=== PATIENT | male | born 1945 ===

== ENCOUNTER 2024-11-17 14:32 | Emergency (ER) | payer OTHER ==
[2024-11-17] MEDS: PANTOPRAZOLE 40 MG/10 ML VIAL IVP ONE (14:48)
[2024-11-17] MEDS: LACTATED RINGERS 1,000 ML BAG IV STA (14:49)
[2024-11-17] MEDS: MIDAZOLAM 1 MG/ML 5 ML VIAL IV STA (14:58)
[2024-11-17] MEDS: ROCURONIUM 10 MG/ML (5 ML VIAL) IV STA (14:59)
--- NOTE | 2024-11-17 15:13 | XR ---
EXAMINATION TYPE: XR chest 1V portable DATE OF EXAM: 11/17/2024 3:06 PM COMPARISON: None. CLINICAL INDICATION: Male, 24 years old with history of resp failure; [facility] TECHNIQUE: XR chest 1V portable Frontal view of the chest. FINDINGS: Cardiac silhouette within normal limits for size. There is complete opacification of the right hemithorax. An endotracheal tube visualized terminating approximately 2.9 cm above the jamarcus. Left lung appears clear. No pneumothorax. No acute osseous abnormality. IMPRESSION: 1. Near complete opacification of the right hemithorax suspicious for pneumonia. 2. Endotracheal tube terminating proximal to 9 cm above the jamarcus. [facility], , 11/17/2024 3:10 PM
--- NOTE | 2024-11-17 15:19 | ED ---
General Adult HPI - General Chief complaint: Altered Mental Status Stated complaint: Unresponsive Time Seen by Provider: 11/17/24 14:39 Source: EMS, RN notes reviewed, old records reviewed Mode of arrival: EMS Limitations: altered mental status - History of Present Illness Initial comments: Approximately 81-year-old male, Olivier Mojica presenting with altered mental status. Patient was found by paramedics, completely unresponsive agonal respirations hypoxic, tachycardic, covered in vomit. He was found either by family or landlord after last being seen 2 days prior. No history is available at the time of my evaluation - Related Data Allergies Allergy/AdvReac Type Severity Reaction Status Date / Time Unable to Assess Allergy Verified 11/17/24 14:37 Review of Systems ROS Statement: Those systems with pertinent positive or pertinent negative responses have been documented in the HPI. ROS Other: All systems not noted in ROS Statement are negative. Past Medical History Past Medical History: Unable to Obtain History of Any Multi-Drug Resistant Organisms: Unobtainable Past Surgical History: Unable to Obtain Past Psychological History: Unable to Obtain Past Alcohol Use History: Unable to Obtain Past Drug Use History: Unable to Obtain General Exam Limitations: altered mental status General appearance: obtunded, in distress Head exam: Present: atraumatic, normocephalic Eye exam: Present: PERRL ENT exam: Present: mucous membranes dry Neck exam: Present: normal inspection. Absent: tenderness, meningismus Respiratory exam: Present: respiratory distress, rhonchi Cardiovascular Exam: Present: normal rhythm, tachycardia GI/Abdominal exam: Present: soft. Absent: distended, tenderness Neurological exam: Absent: alert Skin exam: Present: cyanosis, pallor Course Vital Signs 11/17/24 11/17/24 11/17/24 14:35 14:40 14:54 Temperature Pulse Rate 141 H 152 H Respiratory 12 18 Rate Blood Pressure 110/61 108/83 O2 Sat by Pulse Oximetry Fraction of 100 Inspired Oxygen (FIO2) 11/17/24 11/17/24 11/17/24 15:00 15:07 15:08 Temperature 98.4 F Pulse Rate 142 H 142 H Respiratory 20 20 Rate Blood Pressure 100/70 116/78 O2 Sat by Pulse 93 L Oximetry Fraction of 100 Inspired Oxygen (FIO2) 11/17/24 11/17/24 11/17/24 15:34 15:40 15:48 Temperature 99.5 F 99.7 F H Pulse Rate 134 H 134 H Respiratory 20 20 Rate Blood Pressure 77/59 82/63 103/74 O2 Sat by Pulse 93 L Oximetry Fraction of Inspired Oxygen (FIO2) 11/17/24 11/17/24 15:56 16:04 Temperature Pulse Rate 134 H 130 H Respiratory 20 20 Rate Blood Pressure 115/80 O2 Sat by Pulse 94 L Oximetry Fraction of Inspired Oxygen (FIO2) Procedures - Intubation Sedative: Versed Mg Given: 5 Paralytic: Rocuronium Mg Given: 50 Laryngoscope: Ambar Size: 4 ET Tube Size: 8 ET Tube Uncuffed: No Tube Secured Depth (cm): 24 Tube Secured Location: lips Tube Placement Confirmation: visualized tube passing through cords, equal breath sounds bilaterally Patient Tolerated Procedure: well Intubation Complications: none Medical Decision Making - Medical Decision Making Was pt. sent in by a medical professional or institution ([facility], CASE RESOLUTION SPECIALIST, urgent care, hospital, or [facility]...) When possible be specific @ -[No] Did you speak to anyone other than the patient for history (EMS, parent, family, police, friend...)? What history was obtained from this source @ -[No] Did you review nursing and triage notes (agree or disagree)? Why? @ -[I reviewed and agree with nursing and triage notes] Were old charts reviewed (outside hosp., previous admission, EMS record, old EKG, old radiological studies, urgent care reports/EKG's, [facility] records)? Report findings @ -[No old charts were reviewed] Differential Altered Mental Status: Hypoglycemia, DKA, hypercapnia, ETOH, overdose, CO poisoning, trauma, myxedema coma, HTN encephalopathy, infection, encephalitis, psychosis, intercranial hemor rhage, hepatic encephalopathy, meningitis, CVA, this is not meant to be an all- inclusive list EKG interpreted by me (3pts min.). @ -Sinus tachycardia versus atrial flutter with 2 1 conduction, narrow complex QRS rate of 154, MD interval 118, QRS duration 94, QTc 392 X-rays interpreted by me (1pt min.). @Single view chest x-ray showing satisfactory placement of the endotracheal tube, opacification of the right hemithorax CT interpreted by me (1pt min.). @CT showing large intracranial hemorrhage with midline shift, vasogenic edema, intraventricular hemorrhage. U/S interpreted by me (1pt. min.). @ -[None done] What testing was considered but not performed or refused? (CT, X-rays, U/S, labs)? Why? @ -[None] What meds were considered but not given or refused? Why? @ -[None] Did you discuss the management of the patient with other professionals (professionals i.e. , PA, CASE RESOLUTION SPECIALIST, lab, RT, psych nurse, social insurance analyst, skin care therapist, teacher, humane officer, pillowcase maker)? Give summary @ -[No] Was smoking cessation discussed for >3mins.? @ -[No] Was critical care preformed (if so, how long)? @Yes, 35 minutes Were there social determinants of health that impacted care today? How? (Homelessness, low income, unemployed, alcoholism, drug addiction, transportation, low edu. Level, literacy, decrease access to med. care, detention, rehab)? @ -[No] Was there de-escalation of care discussed even if they declined (Discuss DNR or withdrawal of care, Hospice)? DNR status @ -[No] What co-morbidities impacted this encounter? (DM, HTN, Smoking, COPD, CAD, Cancer, CVA, ARF, Chemo, Hep., AIDS, mental health diagnosis, sleep apnea, morbid obesity)? @ -[History not known Was patient admitted / discharged? Hospital course, mention meds given and route, prescriptions, significant lab abnormalities, going to OR and other pertinent info. @ -79-year-old male presenting in extremis, altered, agonal respirations, tachycardic, covered in what appears to be hematemesis. Patient is intubated upon arrival. Workup was initiated which shows significant abnormalities including opacification of the right hemithorax, large intracranial hemorrhage with vasogenic edema, elevated troponin, elevated lactic acid. Initial resuscitation is performed and ultimately the patient's identity is located and I was able to discuss the goals of care with the patient's son Harman who is approximately 8 hours away. It is decided that the patient should be kept comfortable and no aggressive measures should be continued. The patient is extubated in the emergency department and shortly thereafter the patient is . At 1625. I did notify the son of his father's passing. Undiagnosed new problem with uncertain prognosis? @ -[No] Drug Therapy requiring intensive monitoring for toxicity (Heparin, Nitro, Insuli n, Cardizem)? @ -[No] Were any procedures done? @ -Yes, intubation Diagnosis/symptom? @ -[Intracranial hemorrhage, respiratory failure, cardiopulmonary arrest Acute, or Chronic, or Acute on Chronic? @ -[Acute Uncomplicated (without systemic symptoms) or Complicated (systemic symptoms)? @ -Complicated Side effects of treatment? @ -[No] Exacerbation, Progression, or Severe Exacerbation? @ -[No] Poses a threat to life or bodily function? How? (Chest pain, USA, CO, pneumonia, PE, COPD, DKA, ARF, appy, cholecystitis, CVA, Diverticulitis, Homicidal, Suicidal, threat to staff... and all critical care pts) @ -yes, cardiac arrest - Lab Data Result diagrams: 11/17/24 15:01 11/17/24 15:01 Lab Results 11/17/24 11/17/24 11/17/24 Range/Units 15:01 15:01 15:01 WBC 5.6 (3.8-10.6) k/uL RBC 5.55 (4.30-5.90) m/uL Hgb 18.0 H (13.0-17.5) gm/dL Hct 53.2 H (39.0-53.0) % MCV 95.8 (80.0-100.0) fL MCH 32.4 (25.0-35.0) pg MCHC 33.8 (31.0-37.0) g/dL RDW 12.7 (11.5-15.5) % Plt Count 209 (150-450) k/uL MPV 8.7 Neutrophils % 79 % Lymphocytes % 16 % Monocytes % 3 % Eosinophils % 0 % Basophils % 1 % Neutrophils # 4.5 (1.3-7.7) k/uL Lymphocytes # 0.9 L (1.0-4.8) k/uL Monocytes # 0.2 (0-1.0) k/uL Eosinophils # 0.0 (0-0.7) k/uL Basophils # 0.0 (0-0.2) k/uL Manual Slide Review Performed PT 14.7 H (10.0-12.5) sec INR 1.4 H (<1.2) APTT 24.8 (22.0-30.0) sec Sodium (137-145) mmol/L Potassium (3.5-5.1) mmol/L Chloride (98-107) mmol/L Carbon Dioxide (22-30) mmol/L Anion Gap mmol/L BUN (9-20) mg/dL Creatinine (0.66-1.25) mg/dL Est GFR (CKD-EPI)AfAm (>60 ml/min/1.73 sqM) Est GFR (CKD-EPI)NonAf (>60 ml/min/1.73 sqM) Glucose (74-99) mg/dL Plasma Lactic Acid Immanuel (0.7-2.0) mmol/L Calcium (8.4-10.2) mg/dL Magnesium (1.6-2.3) mg/dL Total Bilirubin (0.2-1.3) mg/dL AST (17-59) U/L ALT (4-49) U/L Alkaline Phosphatase (38-126) U/L Troponin I (0.000-0.034) ng/mL Total Protein (6.3-8.2) g/dL Albumin (3.5-5.0) g/dL Urine Color Yellow Urine Appearance Clear (Clear) Urine pH 6.0 (5.0-8.0) Ur Specific [place] 1.026 (1.001-1.035) Urine Protein 1+ H (Negative) Urine Glucose (UA) 2+ H (Negative) Urine Ketones 1+ H (Negative) Urine Blood Trace H (Negative) Urine Nitrite Negative (Negative) Urine Bilirubin Negative (Negative) Urine Urobilinogen <2.0 (<2.0) mg/dL Ur Leukocyte Esterase Negative (Negative) Urine RBC 1 (0-5) /hpf Urine WBC 1 (0-5) /hpf Urine Mucus Rare H (None) /hpf 11/17/24 11/17/24 11/17/24 Range/Units 15:01 15:01 15:01 WBC (3.8-10.6) k/uL RBC (4.30-5.90) m/uL Hgb (13.0-17.5) gm/dL Hct (39.0-53.0) % MCV (80.0-100.0) fL MCH (25.0-35.0) pg MCHC (31.0-37.0) g/dL RDW (11.5-15.5) % Plt Count (150-450) k/uL MPV Neutrophils % % Lymphocytes % % Monocytes % % Eosinophils % % Basophils % % Neutrophils # (1.3-7.7) k/uL Lymphocytes # (1.0-4.8) k/uL Monocytes # (0-1.0) k/uL Eosinophils # (0-0.7) k/uL Basophils # (0-0.2) k/uL Manual Slide Review PT (10.0-12.5) sec INR (<1.2) APTT (22.0-30.0) sec Sodium 138 (137-145) mmol/L Potassium 3.6 (3.5-5.1) mmol/L Chloride 98 (98-107) mmol/L Carbon Dioxide 19 L (22-30) mmol/L Anion Gap 21 mmol/L BUN 82 H (9-20) mg/dL Creatinine 3.61 H (0.66-1.25) mg/dL Est GFR (CKD-EPI)AfAm 26 (>60 ml/min/1.73 sqM) Est GFR (CKD-EPI)NonAf 22 (>60 ml/min/1.73 sqM) Glucose 90 (74-99) mg/dL Plasma Lactic Acid Immanuel 9.2 H* (0.7-2.0) mmol/L Calcium 9.5 (8.4-10.2) mg/dL Magnesium 2.3 (1.6-2.3) mg/dL Total Bilirubin 3.0 H (0.2-1.3) mg/dL AST 93 H (17-59) U/L ALT 42 (4-49) U/L Alkaline Phosphatase 41 (38-126) U/L Troponin I 0.467 H* (0.000-0.034) ng/mL Total Protein 7.0 (6.3-8.2) g/dL Albumin 4.1 (3.5-5.0) g/dL Urine Color Urine Appearance (Clear) Urine pH (5.0-8.0) Ur Specific [place] (1.001-1.035) Urine Protein (Negative) Urine Glucose (UA) (Negative) Urine Ketones (Negative) Urine Blood (Negative) Urine Nitrite (Negative) Urine Bilirubin (Negative) Urine Urobilinogen (<2.0) mg/dL Ur Leukocyte Esterase (Negative) Urine RBC (0-5) /hpf Urine WBC (0-5) /hpf Urine Mucus (None) /hpf Critical Care Time Critical Care Time: Yes Total Critical Care Time: 35 Disposition Clinical Impression: Altered mental status, ICH (intracerebral hemorrhage) Disposition: Condition: Undetermined Is patient prescribed a controlled substance at d/c from ED?: No Referrals: None,Stated [Primary Care Provider] - 1-2 days Time of Disposition: 14:25
[2024-11-17 15:25] LABS: AST 93 U/L (17-59); African American GFR (CKD) 26 (>60 ml/min/1.73 sqM); Albumin 4.1 g/dL (3.5-5.0); Alkaline Phosphatase 41 U/L (38-126); Anion Gap 21 mmol/L; Blood Urea Nitrogen 82 mg/dL (9-20); Calcium 9.5 mg/dL (8.4-10.2); Carbon Dioxide 19 mmol/L (22-30); Chloride 98 mmol/L (98-107); Glucose 90 mg/dL (74-99); Magnesium 2.3 mg/dL (1.6-2.3); Non-African American GFR(CKD) 22 (>60 ml/min/1.73 sqM); Potassium 3.6 mmol/L (3.5-5.1); Sodium 138 mmol/L (137-145)
[2024-11-17 15:28] LABS: Appearance,Urine Clear (Clear); Basophils % (A) 1 %; Bilirubin,Urine Negative (Negative); Blood,Urine Trace (Negative); Color,Urine Yellow; Eosinophils % (A) 0 %; Glucose,Urine (UA) 2+ (Negative); HCT 53.2 % (39.0-53.0); INR 1.4 (<1.2); Ketones,Urine 1+ (Negative); Leukocyte Esterase,Urine Negative (Negative); Lymphocytes # (A) 0.9 k/uL (1.0-4.8); Lymphocytes % (A) 16 %; MCH 32.4 pg (25.0-35.0); MCHC 33.8 g/dL (31.0-37.0); MCV 95.8 fL (80.0-100.0); Mean Platelet Volume 8.7; Monocytes # (A) 0.2 k/uL (0-1.0); Monocytes % (A) 3 %; Mucus,Urine Rare /hpf; Neutrophils # (A) 4.5 k/uL (1.3-7.7); Neutrophils % (A) 79 %; Nitrite,Urine Negative (Negative); Partial Thromboplastin Time 24.8 sec (22.0-30.0); Platelet Count 209 k/uL (150-450); Protein,Urine 1+ (Negative); Prothrombin Time 14.7 sec (10.0-12.5); RBC 5.55 m/uL (4.30-5.90); RBC,Urine 1 /hpf (0-5); RDW 12.7 % (11.5-15.5); Specific Gravity,Urine 1.026 (1.001-1.035); Urobilinogen,Urine <2.0 mg/dL (<2.0); WBC 5.6 k/uL (3.8-10.6); WBC,Urine 1 /hpf (0-5)
[2024-11-17 15:33] LABS: ALT 42 U/L (4-49)
--- NOTE | 2024-11-17 15:37 | CT ---
EXAMINATION TYPE: CT brain wo con DATE OF EXAM: 11/17/2024 3:27 PM COMPARISON: None.. CLINICAL INDICATION: Male, 24 years old with history of AMS, Found unresponsive, found in basement. TECHNIQUE: Brain: Axial CT images of the brain were obtained with coronal and sagittal reformats created and rev iewed. Contrast used: None. Oral contrast used: None. CT DLP: 1110.4 mGycm, Automated exposure control for dose reduction was used. FINDINGS: Brain: Large left-sided intraparenchymal hemorrhage involving the left frontal, parietal and temporal lobes. There is a large amount of surrounding vasogenic edema and evidence of approximately 6 mm rightward midline shift. The left lateral ventricle is nearly completely effaced by the blood products. Additio miriam, blood products are visualized in the left thalamus. No definite sizable extra-axial fluid zuleyka ection. Basal cisterns appear patent at this time. No large scalp hematoma or depressed calvarial fra cture present. Orbital contents appear unremarkable. Paranasal sinuses and mastoid air cells appear p atent. IMPRESSION: Large intraparenchymal hemorrhage involving the left frontal, parietal and temporal lobes with associ ated rightward midline shift and surrounding vasogenic edema as described above. Small amount of bloo d products also visualized in the left thalamus. Findings are nonspecific but could be secondary to s pontaneous etiology related to hypertensive or cerebral amyloid angiopathy, hemorrhagic transformatio n of infarction, rupture of vascular malformation or underlying tumor. Recommend neurosurgical consul tation as clinically warranted. *Dr. Davenport was aware of the findings at the time of dictation. [facility], , 11/17/2024 3:35 PM
[2024-11-17] MEDS: AZITHROMYCIN 500 MG in SODIUM CHLORIDE 0.9% 250 ML IVPB STA (15:46)
[2024-11-17 15:50] VITALS: TEMP 99.7
[2024-11-17] MEDS: MORPHINE SULFATE 4 MG/ML SYRINGE IVP STA (15:57)
[2024-11-17 16:08] VITALS: BP 115/80
[2024-11-17] MEDS ORDERED: LORazepam 2 MG/ML INJ IV PRN (16:22)
[2024-11-17] MEDS ORDERED: MORPHINE SULFATE 4 MG/ML SYRINGE IV PRN (16:22)
[2024-11-17] MEDS ORDERED: ONDANSETRON 4 MG/2 ML VIAL IVP PRN (16:22)
[2024-11-17] MEDS ORDERED: MORPHINE SULFATE (100 MG/2 ML) 100 MG in SODIUM CHLORIDE 0.9% 100 ML IV SCH (16:30)
[2024-11-17 16:51] VITALS: PULSE 0; RESP 0
== END 2024-11-17 18:22 | disposition expired ==
LOC: EDBD → EC 14:32
DX: R41.82 Altered mental status, unspecified (principal); I61.9 Nontraumatic intracerebral hemorrhage, unspecified; Z88.8 Allergy status to other drugs, medicaments and biological substances
CPT/HCPCS: 36415; 94002; 93005; 80053; 83605; 83735; 84484; 85025; 85610; 85730; 81001; 87040; 71045; 70450; 99291; 96374; 96375; 96361; 31500; J2270; J0696; J2250; J2704; J2470